=== PATIENT | male | born 1990 | race Two or more races ===

== ENCOUNTER 2016-12-23 12:10 | Emergency (ER) | payer OTHER ==
--- NOTE | ~2016-12-23 | ER ---
PATIENT'S NAME: JONNY MENDOZA [facility] AGE: 26 Y [address] ROOM: [place] [address] LOCATION: [facility] ADMIT DATE: 12/23/2016 ER/Outpatient Report DISCHARGE DATE: 12/23/2016 FAMILY PHYSICIAN: PHYSICIAN, NO ATTENDING PHYSICIAN: Henri Velazquez Time of Arrival: 1210 hours. Time of evaluation: 1220 hours. CHIEF COMPLAINT: Bilateral hand pain and swelling. HISTORY OF PRESENT ILLNESS: This is a 26-year-old male, who presents to the ER, who states that for the past couple of days, he has been having more pain in his wrists and hands. He states he started a new job at [employer], and he does repetitive motions with his hands for 10 hours each day. He states he is having increased pain in both of his hands and wrists and states that he is feeling like they are more swollen than normal. The patient states he has a hard time gripping because of this pain. He has good sensation distally. He has never had anything like this before. ALLERGIES: PENICILLIN. MEDICATIONS: None. PAST SURGERIES: None. SOCIAL HISTORY: Does work at [employer]. Denies any drug or alcohol use. REVIEW OF SYSTEMS: CONSTITUTIONAL: Denies any change in weight or fatigue. MUSCULOSKELETAL: He is complaining of bilateral wrist and hand pain. HEMATOLOGIC: No easy bruising or bleeding. SKIN: No lesions or rashes. PHYSICAL EXAMINATION: VITAL SIGNS: Weight 75 kg taken, blood pressure is 129/68, pulse 78, respirations 20, temperature 98.1 degrees tympanically, and saturations 98% on room air. [place] Coma Score is 15. GENERAL: Alert, calm, well-developed 26-year-old, in no acute distress. PATIENT'S NAME: JONNY MENDOZA [facility] AGE: 26 Y [address] ROOM: [place], [place] [address] LOCATION: [facility] ADMIT DATE: 12/23/2016 ER/Outpatient Report DISCHARGE DATE: 12/23/2016 FAMILY PHYSICIAN: PHYSICIAN, NO ATTENDING PHYSICIAN: Henri Velazquez EXTREMITIES: No clubbing or cyanosis. He maybe has slightly more swollen right hand compared to his left. He does have tenderness in the palm of his left and right hands, right greater than left. He does have some tenderness with flexion and extension. No tenderness over the bony aspects. He has good radial pulse bilaterally. He has good capillary refill. Good sensation to both of his hands. He has full range of motion of elbows bilaterally. No erythema. No ecchymosis noted. LABORATORY DATA AND X-RAYS: None were done. IMPRESSION: Bilateral wrist and hand pain due to overuse. ASSESSMENT AND PLAN: We will send home with a wrist brace for support. The patient states that he only wanted brace on one wrist. Advised them to ice, elevate. I will send him home with a prescription for prednisone to use as directed. He may take Tylenol as needed for pain. We will send him with a note stating that he needs to wear his wrist brace for support and should not do repetitive task for multiple hours; he will need frequent breaks. The patient should follow up with his primary care physician or orthopedic of choice if no improvement. The patient understands and agrees with care. MARIA ISABEL POLANCO PA-C FOR MD ESTRELLA ROCHA/paulina /[id number] d: 12/24/16 0024 t: 01/05/17 1056, OUTPATIENT REPORT
== END 2016-12-23 12:47 | disposition disaster alternative care site (69) ==
LOC: GACC 12:10
DX: M25.532 Pain in left wrist (principal); M25.531 Pain in right wrist; M25.542 Pain in joints of left hand; M25.541 Pain in joints of right hand; X50.3XXA Overexertion from repetitive movements, initial encounter; Z88.0 Allergy status to penicillin